=== PATIENT | female | born 1955 | race Caucasian/White ===

== ENCOUNTER 2016-08-18 14:05 | Emergency (ER) | payer MEDICARE, OTHER ==
[2016-08-18 16:12] LABS: HEMOGLOBIN 12.4 gm/dl (12.3-15.3); RED BLOOD COUNT 4.28 M/UL (4.00-5.10); WHITE BLOOD COUNT 6.8 K/UL (4.5-11.0)
== END 2016-08-18 20:17 | disposition home or self-care (01) ==
LOC: ER1 14:05
PROVIDERS: Physician Assistant
DX: N20.0 Calculus of kidney (principal); N13.30 Unspecified hydronephrosis; I10 Essential (primary) hypertension; M10.9 Gout, unspecified; Z88.5 Allergy status to narcotic agent; Z88.6 Allergy status to analgesic agent
CPT/HCPCS: 36415; 80053; 81001; 83690; 85025; 87086; 96361; 96374; 96375; 99284; J1885; J2270; J2405

== ENCOUNTER 2016-08-22 13:48 | Emergency (ER) | payer MEDICARE, OTHER ==
[2016-08-22 14:47] LABS: HEMOGLOBIN 13.3 gm/dl (12.3-15.3); RED BLOOD COUNT 4.55 M/UL (4.00-5.10); WHITE BLOOD COUNT 10.2 K/UL (4.5-11.0)
== END 2016-08-22 18:42 | disposition home or self-care (01) ==
LOC: ER1 13:48
PROVIDERS: Emergency Medicine
DX: N20.0 Calculus of kidney (principal); N39.0 Urinary tract infection, site not specified
CPT/HCPCS: 36415; 74000; 80053; 81001; 85025; 87040; 87086; 96374; 96375; 96376; 99284; J0696; J2270; J2405; J7030; J7050

== ENCOUNTER → 2020-07-24 | Outpatient (CLI) | payer MEDICARE, OTHER | LOC: EXRD 12:54 | DX: M06.9 Rheumatoid arthritis, unspecified (principal); M19.042 Primary osteoarthritis, left hand; M19.041 Primary osteoarthritis, right hand | CPT/HCPCS: 73130 ==

== ENCOUNTER → 2020-08-28 | Outpatient (CLI) | payer MEDICARE, OTHER | LOC: EXRD 08-22 11:30 | DX: M81.0 Age-related osteoporosis without current pathological fracture (principal) | CPT/HCPCS: 77080 ==